=== PATIENT | male | born 1990 | race Caucasian/White ===

== ENCOUNTER 2017-08-05 03:10 | Emergency (ER) | payer OTHER ==
[~2017-08-05] VITALS: Ht 175.3 cm; Wt 96.2 kg
[2017-08-05 04:06] LABS: BASOPHILS # (AUTO) 0.1 (0.0-0.1); BASOPHILS % 0.5 % (0.0-1.0); EOSINOPHILS # (AUTO) 0.2 (0.0-0.4); HEMATOCRIT 45.1 % (38.2-49.6); HEMOGLOBIN 15.5 g/dL (14.0-18.0); LYMPHOCYTES % 9.4 % (18.0-39.1); MEAN CORPUSCULAR HEMOGLOBIN 29.6 pg (28-32); MEAN CORPUSCULAR HGB CONC 34.4 g/dL (31-35); MEAN CORPUSCULAR VOLUME 86.2 fL (81-99); MONOCYTES # (AUTO) 2.1 (0.2-0.8); MONOCYTES % 9.9 % (4.4-11.3); NEUTROPHILS # (AUTO) 15.9 (2.1-6.9); NEUTROPHILS % 76.9 % (38.7-80.0); PLATELET COUNT 200 x10e3/uL (140-360); RED BLOOD COUNT 5.23 x10e6/uL (4.3-5.7); RED CELL DISTRIBUTION WIDTH 12.3 % (11.7-14.4)
[2017-08-05 04:13] LABS: INR 0.92; PROTHROMBIN TIME 12.8 seconds (11.9-14.5)
[2017-08-05 04:14] LABS: PARTIAL THROMBOPLASTIN TIME 31.3 seconds (23.8-35.5)
[2017-08-05 04:21] LABS: ALANINE AMINOTRANSFERASE 31 IU/L (0-55); ALBUMIN 3.8 g/dL (3.5-5.0); ALBUMIN/GLOBULIN RATIO 0.7 (0.8-2.0); ALKALINE PHOSPHATASE 84 IU/L (40-150); ANION GAP 14.7 mmol/L (8-16); BLOOD UREA NITROGEN 13 mg/dL (7-26); BUN/CREATININE RATIO 12 (6-25); CALCIUM 9.7 mg/dL (8.4-10.2); CARBON DIOXIDE 22 mmol/L (22-29); CHLORIDE 106 mmol/L (98-107); CREATINE KINASE 160 IU/L (30-200); CREATININE, SERUM 1.07 mg/dL (0.72-1.25); EST GLOMERULAR FILTRATION RATE > 60 ML/MIN (60-); GLUCOSE 106 mg/dL (74-118); POTASSIUM 3.7 mmol/L (3.5-5.1); SODIUM 139 mmol/L (136-145)
[2017-08-05 04:29] LABS: TROPONIN I 2.337 ng/mL (0-0.300)
[2017-08-05] MEDS ORDERED: ASPIRIN 81 MG CHEW TAB PO ONE (04:30)
--- NOTE | 2017-08-05 04:45 | Diagnostic Imaging Report ---
EXAM: CHEST 2 VIEWS, PA and lateral DATE: 08/05/2017 3:36 AM Time stamp on exam: 0358 hours INDICATION: Cough, chest pain COMPARISON: None FINDINGS: LINES/TUBES: None LUNGS: No consolidations or edema. PLEURA: No effusions or pneumothorax. HEART AND MEDIASTINUM: Normal size and contour. BONES AND SOFT TISSUES: No acute findings. IMPRESSION: No acute thoracic abnormality. Signed by: Dr. Ivone Serrano M.D. on 08/05/2017 4:41 AM
== END 2017-08-05 05:40 | disposition left against medical advice (07) ==
LOC: ER 03:10
DX: R07.2 Precordial pain (principal); R05 Cough; I21.4 Non-ST elevation (NSTEMI) myocardial infarction; R94.31 Abnormal electrocardiogram [ECG] [EKG]
CPT/HCPCS: 36415; 71020; 80053; 82550; 82553; 83735; 83880; 84484; 85025; 85379; 85610; 85730; 87400; 93005; 99284

== ENCOUNTER 2017-08-05 06:43 | Inpatient (IN) | payer OTHER ==
[~2017-08-05] VITALS: Ht 175.3 cm; Wt 96.2 kg
[2017-08-05] MEDS ORDERED: MORPHINE SULFATE 2 MG/ML SYR IV PRN (07:00)
[2017-08-05] MEDS ORDERED: ONDANSETRON HCL INJ 2 MG/ML VIAL IV PRN ×2 (07:00→09:00)
[2017-08-05 07:04] LABS: BILIRUBIN,URINE NEGATIVE (NEGATIVE); CLARITY,URINE CLEAR (CLEAR); COLOR,URINE YELLOW (YELLOW); KETONES,URINE NEGATIVE (NEGATIVE); LEUKOCYTE ESTERASE ,URINE NEGATIVE (NEGATIVE); NITRITE,URINE NEGATIVE (NEGATIVE); PROTEIN,URINE DIPSTICK NEGATIVE (NEGATIVE); URINE UROBILINOGEN 0.2 mg/dL (0.2 - 1)
[2017-08-05] MEDS ORDERED: LIDOCAINE HCL 2% LOCAL 20 ML VIAL ONE (07:06)
[2017-08-05] MEDS ORDERED: SODIUM CHLORIDE 0.9% 1000ML 1,000 ML ONE (07:07)
[2017-08-05] MEDS ORDERED: NITROGLYCERIN/D5W 200 MCG/ML 250 ML ONE (07:07)
[2017-08-05] MEDS ORDERED: IOPAMIDOL 370 MG/ML 200 ML INFUS..BTL INJ ONE ×2 (07:07→08:18)
[2017-08-05] MEDS ORDERED: HEPARIN SOD/SOD CHLORIDE 2,000 ML ONE (07:07)
[2017-08-05 07:31] LABS: BASOPHILS # (AUTO) 0.1 (0.0-0.1); BASOPHILS % 0.4 % (0.0-1.0); EOSINOPHILS # (AUTO) 0.1 (0.0-0.4); EOSINOPHILS % 0.5 % (0.0-6.0); HEMATOCRIT 39.8 % (38.2-49.6); HEMOGLOBIN 13.8 g/dL (14.0-18.0); LYMPHOCYTES # (AUTO) 2.1 (1.0-3.2); LYMPHOCYTES % 10.8 % (18.0-39.1); MEAN CORPUSCULAR HEMOGLOBIN 29.9 pg (28-32); MEAN CORPUSCULAR HGB CONC 34.7 g/dL (31-35); MEAN CORPUSCULAR VOLUME 86.1 fL (81-99); MONOCYTES # (AUTO) 1.8 (0.2-0.8); MONOCYTES % 9.2 % (4.4-11.3); NEUTROPHILS # (AUTO) 15.2 (2.1-6.9); NEUTROPHILS % 77.4 % (38.7-80.0); PLATELET COUNT 186 x10e3/uL (140-360); RED BLOOD COUNT 4.62 x10e6/uL (4.3-5.7); RED CELL DISTRIBUTION WIDTH 12.4 % (11.7-14.4)
[2017-08-05] MEDS ORDERED: FENTANYL CITRATE/PF 100MCG/2 ML INJ ONE (07:32)
[2017-08-05] MEDS ORDERED: VERAPAMIL HCL 2.5 MG/ML 2 ML VIAL ONE (07:32)
[2017-08-05] MEDS ORDERED: MIDAZOLAM HCL 2 MG/2 ML VIAL ONE (07:32)
[2017-08-05] MEDS ORDERED: HEPARIN SOD (PORCINE) 1000 UNIT/ML 30ML ONE (07:32)
[2017-08-05 07:51] LABS: CREATINE KINASE MB 11.9 ng/mL (0.00-5.00)
[2017-08-05] MEDS: SODIUM CHLORIDE 0.9% 1000ML 1,000 ML IV SCH ×2 (08:49→19:33)
[2017-08-05] MEDS: INDOMETHACIN 25 MG CAP PO SCH ×4 (09:00→20:26)
[2017-08-05] MEDS ORDERED: HYDROCODONE/APAP 5MG-325MG TAB PO PRN (09:00)
[2017-08-05] MEDS ORDERED: ASPIRIN 81 MG ENTERIC COATED PO SCH (09:00)
[2017-08-05 09:23] LABS: EPITHELIAL CELLS,URINE RARE /LPF
--- NOTE | 2017-08-05 10:21 | History and Physical ---
CHIEF COMPLAINT: Abnormal EKG concerning for ST-elevation myocardial infarction. HISTORY OF PRESENT ILLNESS: Mr. Jarquin is a 27-year-old man with no known past medical history. Family history significant for diabetes and kidney disease, who presents with 1-week of upper respiratory tract symptoms, mainly cough, sneezing, diffuse muscle aches, and fatigue. Overnight, he developed chest pressure for which he decided to go to the emergency department. Pressure was worse with changes in position and inspiration. Upon evaluation in the ER, his EKG was concerning for ST-elevations in the lateral leads with some reciprocal changes in V1 and inferior leads. Differential diagnosis discussed, including myopericarditis as cardiac enzymes came back elevated versus acute ST-elevation myocardial infarction. Cardiac catheterization was offered to the patient by the emergency department physician and conversation with myself. However, the patient decided to leave AMA. He was brought back with assistance of family members, and changed his mind and decided to proceed with coronary angiography and possible coronary intervention. Indications, alternatives, risks, and benefits were discussed. The patient was brought to the cardiac catheterization laboratory where his coronary angiogram was performed via the right radial approach confirming absence of obstructive coronary artery disease. His chest pain remains 2/10. Serial cardiac enzymes will be drawn. Continuous EKG monitoring has been discussed. Anti-inflammatory medications initiated. REVIEW OF SYSTEMS: A 12-system reviewed and negative except for as noted above. ALLERGIES: NO KNOWN DRUG ALLERGIES. PAST MEDICAL HISTORY: As per HPI. SOCIAL HISTORY: Denies smoking. Occasional alcohol use. No drug use. Does chew tobacco. FAMILY HISTORY: As per HPI. Diabetes mellitus and chronic kidney disease. Father from renal failure. PHYSICAL EXAMINATION VITALS: Temperature 100 degrees, heart rate 89, respiratory rate 16, blood pressure 129/64, and O2 sat 98%. GENERAL: No acute distress. Alert and active. NECK: No JVD. No carotid bruits. CHEST: Clear to auscultation. CARDIOVASCULAR: Regular rate and rhythm. Normal S1 and S2. No S3. No S4. No murmurs or rubs. ABDOMEN: Soft and nontender. EXTREMITIES: No edema. Warm distal extremities. Pulses palpable throughout 4 extremities. STUDIES: Reviewed. White blood cells 19.7, hemoglobin 13.8 and platelets 186,000. Lactic acid is normal for age at 8.1. CK 190, CK-MB 11.9 and troponin I 4.284. Urinalysis with no protein. Pending cell count. Leukocyte esterase negative. Ketones negative. Blood 1+. EKG as described above. Chest x-ray with no acute thoracic abnormality. ASSESSMENT: Myopericarditis in the setting of upper respiratory tract infection symptoms. RECOMMENDATIONS: Admit to intermediate care unit with continuous EKG and O2 sat monitoring. Initiate colchicine and indomethacin. Aspirin given elevated cardiac enzymes. Trend cardiac enzymes. Further recommendations to follow. Will obtain echocardiogram. Job#: [id number] MT
--- NOTE | 2017-08-05 10:38 | Operative Report ---
DATE OF PROCEDURE: August 05, 2017 PROCEDURE INDICATIONS: EKG changes concerning for ST-elevation myocardial infarction. Patient with active chest pain and elevated cardiac biomarkers. Differential diagnosis includes acute myopericarditis. PROCEDURE COMPLICATIONS: None. ESTIMATED BLOOD LOSS: Less than 5 mL. PROCEDURES PERFORMED 1. Left heart catheterization. 2. Selective coronary angiography times 2. PROCEDURE SUMMARY: After consent was obtained, the patient was prepped and draped in a sterile fashion. The right radial side was locally infiltrated with 2% lidocaine. Access was obtained with a 5-Tamazight outer diameter sheath, and 2.5 mg of verapamil and 300 mcg of nitroglycerin were administered with the sheath. A IL 3.5 guide catheter was advanced over the wire to the proximal ascending aorta, and used for selective angiography of the left main and then the right coronary artery. Of note, the right coronary artery seems to be somewhat anterior and medial in takeoff. Hemodynamic pressures were obtained. The following findings were noted: Luminal irregularities noted throughout the coronary tree with no evidence of obstructive coronary artery disease with a large caliber left main giving off an LAD and circumflex. The LAD giving a couple of diagonals and multiple septal perforators. The circumflex giving 2 obtuse marginals and a terminal small left posterolateral branch. The dominant right coronary giving a RV branch, 2 RV marginals and a terminal RPDA and an RPLV. LV pressure was 108/11 with end-diastolic pressure of 24, and aortic pressure was 105/67. No left ventriculogram was performed. TR band was applied at the end of the procedure. CONCLUSION: No evidence of obstructive coronary artery disease. Elevated cardiac biomarkers likely related to myopericarditis. RECOMMENDATIONS: Wean TR band. IV fluids. Transition care to intermediate care unit with continuous telemetry monitoring, anti-inflammatory medications will be initiated, and echocardiogram ordered. Job#: [id number] BAMBI NOBLE
[2017-08-05 11:45] LABS: CREATINE KINASE MB 11.6 ng/mL (0.00-5.00)
[2017-08-05 18:01] VITALS: BP 123/73
[2017-08-05 18:10] VITALS: BP 123/73
[2017-08-05] MEDS: ASPIRIN 81 MG CHEW TAB PO SCH (18:26)
[2017-08-05] MEDS: COLCHICINE 0.6 MG TAB PO SCH (18:33)
[2017-08-05 19:30] LABS: CREATINE KINASE MB 6.7 ng/mL (0.00-5.00)
[2017-08-05 20:06] VITALS: BP 116/74
[2017-08-05 23:49] LABS: CREATINE KINASE MB 4.5 ng/mL (0.00-5.00)
[2017-08-06] VITALS (9 sets, daily range): BP systolic 117–132; BP diastolic 71–91
[2017-08-06] MEDS: SODIUM CHLORIDE 0.9% 1000ML 1,000 ML IV SCH (05:52)
[2017-08-06 06:21] LABS: BASOPHILS # (AUTO) 0.1 (0.0-0.1); BASOPHILS % 0.6 % (0.0-1.0); EOSINOPHILS # (AUTO) 0.2 (0.0-0.4); EOSINOPHILS % 2.3 % (0.0-6.0); HEMOGLOBIN 13.6 g/dL (14.0-18.0); LYMPHOCYTES # (AUTO) 2.3 (1.0-3.2); LYMPHOCYTES % 24.7 % (18.0-39.1); MEAN CORPUSCULAR HEMOGLOBIN 29.4 pg (28-32); MEAN CORPUSCULAR VOLUME 86.4 fL (81-99); MONOCYTES % 10.8 % (4.4-11.3); NEUTROPHILS # (AUTO) 5.6 (2.1-6.9); NEUTROPHILS % 59.9 % (38.7-80.0); PLATELET COUNT 214 x10e3/uL (140-360); RED BLOOD COUNT 4.63 x10e6/uL (4.3-5.7); RED CELL DISTRIBUTION WIDTH 12.3 % (11.7-14.4)
[2017-08-06 06:45] LABS: ALANINE AMINOTRANSFERASE 36 IU/L (0-55); ALBUMIN 2.9 g/dL (3.5-5.0); ALBUMIN/GLOBULIN RATIO 0.7 (0.8-2.0); ALKALINE PHOSPHATASE 67 IU/L (40-150); ANION GAP 11.9 mmol/L (8-16); BLOOD UREA NITROGEN 12 mg/dL (7-26); BUN/CREATININE RATIO 15 (6-25); CALCIUM 8.8 mg/dL (8.4-10.2); CARBON DIOXIDE 21 mmol/L (22-29); CHLORIDE 112 mmol/L (98-107); CHOL/HDL RATIO 5.7 (3.9-4.7); CHOLESTEROL 132 MD/DL (0-199); CREATINE KINASE 82 IU/L (30-200); CREATININE, SERUM 0.81 mg/dL (0.72-1.25); EST GLOMERULAR FILTRATION RATE > 60 ML/MIN (60-); GLUCOSE 96 mg/dL (74-118); HDL CHOLESTEROL 23 MG/DL (40-60); LDL CHOLESTEROL 87 MG/DL (60-130); POTASSIUM 3.9 mmol/L (3.5-5.1); SODIUM 141 mmol/L (136-145); TRIGLYCERIDES 112 MG/DL (0-149)
[2017-08-06] MEDS: INDOMETHACIN 25 MG CAP PO SCH ×3 (09:08→20:35)
[2017-08-06] MEDS: ASPIRIN 81 MG CHEW TAB PO SCH (09:08)
[2017-08-06] MEDS: COLCHICINE 0.6 MG TAB PO SCH (09:08)
[2017-08-06] MEDS: METOPROLOL SUCCINATE 25 MG TAB XL PO SCH (12:47)
[2017-08-06] MEDS: LISINOPRIL 2.5 MG TAB PO SCH (12:47)
--- NOTE | 2017-08-06 18:52 | Progress Note ---
DATE: August 06, 2017 CARDIOLOGY PROGRESS NOTE SUBJECTIVE: The patient denies chest pain or shortness of breath. OBJECTIVE VITAL SIGNS: Temperature 98.6 degrees, pulse 86, respiratory rate 17, blood pressure 128/91, oxygen saturation 99% on room air. GENERAL: Awake, alert and in no acute distress. LUNGS: Clear to auscultation bilaterally. No wheezes or crackles. CARDIOVASCULAR: Normal rate, regular rhythm. No murmurs. Normal S1 and S2. ABDOMEN: Soft and nontender. EXTREMITIES: No edema. CARDIAC MEDICATIONS: 1. Lisinopril 5 mg p.o. daily. 2. Metoprolol succinate 25 mg p.o. daily. 3. Aspirin 81 mg p.o. daily. LABORATORY DATA: WBC 9.3, hemoglobin 13.6, hematocrit 40, platelets 214,00, sodium 141, potassium 3.9, chloride 112, CO2 of 21, BUN 12, creatinine 0.81. Troponin 1.020. Cholesterol 132. Triglycerides 112. LDL 87. HDL 23. TELEMETRY: Normal sinus rhythm. IMPRESSION 1. Myocarditis. 2. Upper respiratory infection. RECOMMENDATIONS: Start metoprolol succinate and lisinopril given reduced ejection fraction on echocardiogram. Monitor on telemetry. If he feels well and is asymptomatic without any arrhythmias, he may be discharged home in the morning. Job#: [id number]
[2017-08-07 00:40] VITALS: BP 128/79
[2017-08-07 04:50] VITALS: BP 120/71
[2017-08-07 08:00] VITALS: BP 121/79
[2017-08-07] MEDS ORDERED: LISINOPRIL2.5 MG PO (08:37)
[2017-08-07] MEDS ORDERED: INDOMETHACIN25 MG PO (08:37)
[2017-08-07] MEDS ORDERED: Colchicine PO (08:37)
[2017-08-07] MEDS ORDERED: TOPROL XL25 MG PO (08:37)
[2017-08-07] MEDS: COLCHICINE 0.6 MG TAB PO SCH (09:00)
[2017-08-07] MEDS: LISINOPRIL 2.5 MG TAB PO SCH (09:00)
[2017-08-07] MEDS: INDOMETHACIN 25 MG CAP PO SCH (09:00)
[2017-08-07] MEDS: ASPIRIN 81 MG CHEW TAB PO SCH (09:00)
[2017-08-07] MEDS: METOPROLOL SUCCINATE 25 MG TAB XL PO SCH (09:00)
--- NOTE | 2017-08-07 11:13 | Discharge Summary ---
DISCHARGE DIAGNOSIS: Viral myopericarditis. DISCHARGE CONDITION: Stable. DISCHARGE INSTRUCTIONS: Follow up with Dr. Arroyo in 5 days. DISCHARGE MEDICATIONS: Please see TONY. Cedric Jarquin was admitted with chest pain and EKG abnormalities. Coronary angiography revealed no evidence of coronary artery disease. LV ejection fraction was mildly depressed. A diagnosis of myopericarditis was made. The patient was initiated on indomethacin, colchicine as well for his pericarditis as well as beta derian and SIRI inhibitor for his congestive heart failure. His symptoms were improved within 24 hours of admission. He is being discharged home with instructions to follow up as listed above. SERGIO MOJICA MD Job#: [id number] EV
== END 2017-08-07 10:44 | disposition home or self-care (01) | DRG 286 ==
LOC: ER 06:43 → CATH LAB 07:41 → IMCU 08:52
PROVIDERS: ADMIT Internal Medicine Cardiovascular Disease; ATTEND Internal Medicine Cardiovascular Disease
PROC: 4A023N7 Measurement of Cardiac Sampling and Pressure, Left Heart, Percutaneous Approach (ICD-10-PCS; principal; 2017-08-05)
PROC: B2111ZZ Fluoroscopy of Multiple Coronary Arteries using Low Osmolar Contrast (ICD-10-PCS; 2017-08-05)
DX: I30.1 Infective pericarditis (principal); I50.21 Acute systolic (congestive) heart failure; J06.9 Acute upper respiratory infection, unspecified
CPT/HCPCS: 36140; 36415; 77002; 80053; 80061; 81001; 82550; 82553; 83605; 84484; 85025; 87040; 87086; 93005; 93306; J1644; J2001; J2250; J7030; Q9967